=== PATIENT | male | born 1985 | race Caucasian/White ===

== ENCOUNTER 2019-02-26 19:40 | Emergency (ER) | payer OTHER ==
[~2019-02-26] VITALS: Ht 170.2 cm; Wt 82.3 kg
[2019-02-26 19:49] VITALS: Ht 170.2 cm; Wt 82.3 kg
[2019-02-26 23:30] VITALS: BP 134/86
== END 2019-02-26 23:30 | disposition home or self-care (01) ==
LOC: ED 19:40
DX: S20.211A Contusion of right front wall of thorax, initial encounter (principal); W01.0XXA Fall on same level from slipping, tripping and stumbling without subsequent striking against object, initial encounter; Y93.55 Activity, bike riding; Y92.828 Other wilderness area as the place of occurrence of the external cause; Y99.8 Other external cause status
CPT/HCPCS: J1885